=== PATIENT | female | born 1945 | race Caucasian/White ===

== ENCOUNTER 2023-09-17 10:21 | Day surgery (SDC) | payer MEDICARE, OTHER ==
[2023-09-17] MEDS ORDERED: HEMOSTATIC MATRIX 8 ML 1 EACH PAD MC ONE (12:23)
[2023-09-17] MEDS ORDERED: CELLULOSE,OXIDIZED 1 PKT EACH MC ONE (12:24)
[2023-09-17] MEDS ORDERED: CELLULOSE,OXIDIZED 1 EACH EACH MC ONE (12:24)
[2023-09-17] MEDS ORDERED: LIDOCAINE HCL/MPF 1% 30 ML VIAL IJ ONE (12:24)
[2023-09-17] MEDS ORDERED: CELLULOSE,OXIDIZED 1 EA PACK MC ONE (12:24)
[2023-09-17 12:32] LABS: CALCIUM, SERUM 9.9 mg/dL (8.5-10.1); CARBON DIOXIDE 31 mmol/L (21-32); CHLORIDE 98 mmol/L (98-107); CREATININE 2.7 mg/dL (0.6-1.3); GLUCOSE 93 mg/dL (74-106); POTASSIUM 4.5 mmol/L (3.5-5.1); SODIUM SERUM 134 mmol/L (136-145); UREA NITROGEN, BLOOD 75 mg/dL (7-18)
[2023-09-17] MEDS ORDERED: KETAMINE HCL (500MG/10ML) 50 MG/ML VIAL ONE (12:50)
[2023-09-17] MEDS ORDERED: ROPIVACAINE HCL 0.5% 5 MG/ML 30ML VIAL ONE (12:50)
[2023-09-17] MEDS ORDERED: FENTANYL PF 100MCG/2ML AMPUL ONE (12:50)
[2023-09-17] MEDS ORDERED: FAMOTIDINE/PF INJ 20 MG/2 ML VIAL IV ONE (12:50)
[2023-09-17] MEDS ORDERED: HEPARIN SODIUM, PORCINE 1,000 UNIT/ML VIAL ONE (13:51)
[2023-09-17] MEDS ORDERED: ONDANSETRON HCL/PF 4 MG/2 ML VIAL ONE (16:04)
== END 2023-09-17 17:55 ==
LOC: DS 10:21
PROVIDERS: ATTEND Surgery Vascular Surgery
DX: N18.6 End stage renal disease (principal); I12.9 Hypertensive chronic kidney disease with stage 1 through stage 4 chronic kidney disease, or unspecified chronic kidney disease; I48.91 Unspecified atrial fibrillation; D64.9 Anemia, unspecified; E66.01 Morbid (severe) obesity due to excess calories; Z98.890 Other specified postprocedural states; Z79.899 Other long term (current) drug therapy
CPT/HCPCS: 36415; 36821; 80048; A4565; J0690; J1100; J1644; J2405; J2704; J2795; J3010; J3490; J7030

== ENCOUNTER 2023-11-05 06:07 | Day surgery (SDC) | payer MEDICARE, OTHER ==
[2023-11-05] MEDS ORDERED: CELLULOSE,OXIDIZED 1 EA PACK MC ONE (07:35)
[2023-11-05] MEDS ORDERED: CELLULOSE,OXIDIZED 1 EACH EACH MC ONE (07:35)
[2023-11-05] MEDS ORDERED: LIDOCAINE 1% INJ 50 ML MDV IJ ONE (07:35)
[2023-11-05] MEDS ORDERED: ANESTHESIA TRAY IN PYXIS 1 EA TRAY MC ONE (07:36)
[2023-11-05] MEDS ORDERED: ROPIVACAINE HCL 0.5% 5 MG/ML 30ML VIAL ONE ×2 (07:36→07:56)
[2023-11-05 07:55] LABS: CALCIUM, SERUM 9.3 mg/dL (8.5-10.1); CARBON DIOXIDE 29 mmol/L (21-32); CHLORIDE 99 mmol/L (98-107); CREATININE 3.2 mg/dL (0.6-1.3); GLUCOSE 88 mg/dL (74-106); POTASSIUM 3.8 mmol/L (3.5-5.1); SODIUM SERUM 136 mmol/L (136-145); UREA NITROGEN, BLOOD 44 mg/dL (7-18)
[2023-11-05] MEDS ORDERED: MIDAZOLAM HCL 2 MG/2ML VIAL ONE (07:56)
[2023-11-05] MEDS ORDERED: FENTANYL PF 100MCG/2ML AMPUL ONE (07:56)
[2023-11-05] MEDS ORDERED: KETAMINE HCL (500MG/10ML) 50 MG/ML VIAL ONE (07:56)
[2023-11-05 08:26] LABS: INR 1.07 (0.91-1.10); PARTIAL THROMBOPLASTIN TIME 26.1 SEC (24.3-34.3); PROTHROMBIN TIME 11.3 SECS (9.2-11.1)
[2023-11-05] MEDS ORDERED: BACITRACIN OPHTH OINT 3.5 GM TUBE ONE (10:00)
== END 2023-11-05 13:35 ==
LOC: DS 06:07
PROVIDERS: ATTEND Surgery Vascular Surgery
DX: N18.6 End stage renal disease (principal); B06.89 Other rubella complications; I48.91 Unspecified atrial fibrillation; E66.3 Overweight; I10 Essential (primary) hypertension; I11.0 Hypertensive heart disease with heart failure; I50.9 Heart failure, unspecified; Z98.890 Other specified postprocedural states; Z79.899 Other long term (current) drug therapy
CPT/HCPCS: 36819; 36415; 80048; 85730; 85610; J0690; J2704; J3010; J3490 ×4; J2405; J1644; J7030; J2250; J2795; A4338; A4565; A6402; A6209